=== PATIENT | female | born 1975 | race Caucasian/White ===

== ENCOUNTER 2023-05-10 22:01 | Emergency (ER) | payer BC ==
[2023-05-10] MEDS: HYDROmorphone 2 MG/ML SDV IVPUSH ONE (22:23)
[2023-05-10] MEDS: Ondansetron 4 MG/2 ML SDV IVPUSH ONE (22:23)
[2023-05-10] MEDS: fentaNYL 100 MCG/2 ML SDV IVPUSH ONE (23:32)
[2023-05-11] MEDS: fentaNYL 100 MCG/2 ML SDV IVPUSH ONE (00:35)
== END 2023-05-11 01:10 ==
LOC: FB.ED 22:01
DX: S82.852A Displaced trimalleolar fracture of left lower leg, initial encounter for closed fracture (principal); Z91.012 Allergy to eggs; W18.43XA Slipping, tripping and stumbling without falling due to stepping from one level to another, initial encounter
CPT/HCPCS: 73610-LT; 96374; 96375; 99284; 99284-25; J1170; J2405; J3010